=== PATIENT | female | born 1985 | race Caucasian/White ===

== ENCOUNTER 2023-06-11 13:47 | Emergency (ER) | payer OTHER, SELFPAY ==
[2023-06-11 14:12] LABS: % Eosinophils 1.3 % (0-6); % Immature Granulocytes 0.4 % (0-0.5); % Monocytes 5.7 % (1.7-9.3); % Neutrophils 59.6 % (42.2-75.2); Absolute Basophils 0.1 10^3/uL (0-0.2); Absolute Eosinophils 0.1 10^3/uL (0-0.7); Absolute Lymphocytes 2.2 10^3/uL (1.2-3.4); Absolute Monocytes 0.4 10^3/uL (0.1-0.6); Absolute Neutrophils 4.1 10^3/uL (1.4-6.5); Hematocrit 37.5 % (37.0-47.0); Hemoglobin 12.5 g/dL (12.0-16.0); Mean Corp Hgb Conc. 33.3 g/dL (33.0-37.0); Mean Corpuscular Hgb 29.1 pg (27.0-31.0); Mean Corpuscular Volume 87.4 fL (81.0-99.0); Mean Platelet Volume 9.8 fL (7.4-10.4); Nucleated Red Blood Cells % 0 %; Platelet Count 353 10^3/uL (130-400); Red Blood Cell Count 4.29 10^6/uL (4.20-5.40); Red Cell Dist. Width 11.9 % (11.5-14.5); White Blood Cell Count 6.8 10^3/uL (4.8-10.8)
[2023-06-11 14:28] LABS: ALT (SGPT) 20 U/L (0-35); AST (SGOT) 19 U/L (14-36); Albumin 4.9 g/dl (3.5-5.0); Alkaline Phosphatase 49 U/L (38-126); Blood Urea Nitrogen 16 mg/dl (7-17); Calcium 9.9 mg/dl (8.4-10.2); Carbon Dioxide 28 mmol/L (22-30); Chloride 101 mmol/L (98-107); Glucose 100 mg/dl (70-99); Potassium 3.9 mmol/L (3.5-5.1); Sodium 138 mmol/L (135-145); Total Bilirubin 1.5 mg/dl (0.2-1.3); Total Protein 7.3 g/dl (6.3-8.2); eGFR > 60.00
[2023-06-11 14:38] LABS: Troponin I < 0.012 ng/ml
[2023-06-11 16:38] VITALS: BP 128/86
--- NOTE | 2023-06-11 17:13 | ED.GENMED ---
History of Present Illness
General
Chief Complaint: Chest Pain
Source: patient and significant other
Exam Limitations: none
Time Seen by Provider: 06/11/23 16:07
Nursing documentation reviewed up to this point in time: agreed with
Travel History
Have you had any contact with someone who has COVID-19?: No
Do you have any symptoms of coronavirus? Fever > 100 degrees, chills, cough, shortness of breath, sore throat, loss of taste or smell, muscle aches, or headache?: No
History of Present Illness
History of Present Illness:
Patient is a 37-year-old female who denies significant past medical history who presents emergency department accompanied by her wendy� for evaluation of chest pain. Patient reports that she developed the pain 3 days ago. She reports that it
started while she was at rest over her left chest. Patient reports the pain then started to radiate into her left shoulder and down her left arm. Patient also has noticed some pain in her left upper back. Patient reports that the pain in all
these locations occurs intermittently. She reports that sometimes it is associated with some numbness and tingling in her left hand. She also reports intermittent nausea. Patient denies any shortness of breath. Patient denies any exacerbating
factors, she denies that the pain is worse when she takes a deep breath. Patient reports that when she is distracted such as when her filourdes� is making her laugh, she seems to not feel the pain. Patient reports taking a holistic medication without
improvement of her pain. Patient denies taking any other medications for her pain. Patient reports that she would to see her primary care provider today and was referred to the emergency department for further evaluation. Patient reports CAD does
run in her family but not at young ages. Patient denies any personal or family history of VTE. Patient denies any recent lower extremity edema or prolonged periods of immobility. Patient reports she does have a Mirena IUD in place. Patient notes
she did have strep throat last week and did complete a course of antibiotics. Patient denies that she was coughing or had hemoptysis. Patient denies the pain is better or worse with laying flat or sitting forward. Patient admits that she is
undergoing an extremely stressful legal situation with her ex- in regards to custody of their children. She reports that she has court tomorrow.
Review of Systems
Review of Systems
Allergies reviewed?: Yes
All Other Systems: ROS reviewed and negative except as documented in HPI and ROS
Constitutional: Reports no symptoms
EENT: Reports no symptoms
Respiratory: Reports no symptoms
Cardiac: Reports chest pain ('sometimes' denies any currently)
ABD/GI: Reports abdominal pain ('sometimes', none currently)
: Reports no symptoms
Musculoskeletal: Reports back pain
Skin: Reports no symptoms
Neurological: Reports no symptoms
Endocrine: Reports no symptoms
Hematologic/Lymphatic: Reports no symptoms
Psychiatric: Reports no symptoms
Phy Exam
General Physical Exam
General Presentation: well appearing
General Skin: warm and dry
General Habitus: normal
General Mental: alert
General Hydration: appears well hydrated
ENT Exam
ENT Exam: EOMI, neck supple and normocephalic
Eye Exam
Eye Exam: PERRL, cornea clear and conjunctiva normal
Cardiovascular Exam
Cardiovascular Exam: regular rate/rhythm, no edema, no murmur and normal peripheral pulses
Pulmonary Exam
Pulmonary Exam: lungs clear, no respiratory distress, no rales, no crackles, no rhonchi, no stridor, no wheezing and no cough
Gastrointestinal Exam
Gastrointestinal Exam: normal bowel sounds, non tender, soft, no organomegaly, no pulsatile mass and non distended
Neurological Exam
Neurological Exam: alert, oriented x3, no motor deficits, speech normal and other (normal and equal strength of the bilateral upper extremities, 2+ radial pulses bilaterally, sensation is intact to light touch distally)
Musculoskeletal Exam
Musculoskeletal Exam: full ROM, no edema and other (ttp over the anterior left chest wall which reproduces the patient's pain)
Skin Exam
Skin Exam: normal color, warm/dry, no rash and no petechia
Psychiatric Exam
Psychiatric Exam: normal mood/affect
Scores
Heart Score for Chest Pain Patients
STEMI patient?: No
History: Slightly or Non-Suspicious
ECG: Normal
Age: </= 45 years
Risk Factors: No Risk Factors
Troponin: </= Normal Limit
Heart Score for Chest Pain Patients: 0
Heart Score Risk: 2.5% MACE over next 6 weeks
Course
Orders/Labs/Results
Orders:
Orders
06/11/23 13:55
Electrocardiogram (*1) Urgent
Reason for Study: Chest Pain
EKG- Treatment ONCE
06/11/23 14:03
Complete Blood Count/With Diff Urgent
Comprehensive Metabolic Panel Urgent
Troponin I Urgent
06/11/23 16:41
CR Chest - 2 Views Urgent
Comment:
Reason For Exam: chest pain
Abnormal Lab Results
06/11/23
14:03
Creatinine 0.5 L mg/dL
(0.6-1.0)
Glucose 100 H mg/dl
(70-99)
Total Bilirubin 1.5 H mg/dl
(0.2-1.3)
06/11/23 14:03
06/11/23 14:03
Vital Signs
Initial and Last Documented VS:
Initial Vital Signs
Temp Pulse Resp Pulse Ox
98.5 F 85 18 99
06/11/23 13:53 06/11/23 13:53 06/11/23 13:53 06/11/23 13:53
Last Documented Vital Signs
Temp Pulse Resp BP Pulse Ox
98.5 F 84 11 125/66 98
06/11/23 13:53 06/11/23 16:59 06/11/23 16:59 06/11/23 18:01 06/11/23 18:15
*Critical Care Note
Total Time (30-74mins, 75-104mins- exclusive of procedures): Not Applicable
Update Note
Update Note:
Patient is a 37-year-old female who denies significant past medical history who presents to the emergency department for evaluation of left-sided chest pain which has been intermittent over the past several days. Patient reports intermittent
radiation down the left arm. Patient notes that she has been under significant mental stress lately as she is currently going through a custody xiong with her previous partner. On arrival, patient's vital signs are stable, she is afebrile. On
exam, patient is very well-appearing, she is in no acute distress, she has a normal cardiopulmonary exam, she has chest wall tenderness which reproduces the patient's pain, she is neurologically intact. While the patient was in the waiting room,
she had an EKG which demonstrates an incomplete right bundle branch block but no other dysrhythmia or evidence of acute ischemia. Labs were obtained and are nonactionable, patient has a negative troponin. Chest x-ray demonstrates no acute disease
process. Given the fact the patient's pain has been persistent for the past few days and that I have a low suspicion for cardiac cause of the patient's pain, feel that single troponin is sufficient. Patient is safe for discharge to home, she was
advised to follow-up with her PCP to see if she needs referral to cardiology for further evaluation. Patient and her significant other were educated on return precautions, they expressed understanding of the plan and agreed.
ED Attending Note
-
Portions of this chart may have been created with voice recognition software.� Occasional wrong word or��sound alike� substitutions may have occurred due to the inherent limitations of voice recognition software.
Discharge Plan
Departure
Patient Disposition: Home (Routine Discharge)
Date of Disposition: 06/11/23
Time of Disposition: 18:18
Patient with high blood pressure during this ER visit?: Yes
Condition: Good
Covid-19: Not Applicable
Discharge Problem:
Chest pain
Instructions: Chest Pain PCP Follow Up
Prescriptions:
No Action
[id number] fum-folic 1 EACH tablet
1 ea PO DAILY
acetaminophen 325 MG tablet
650 mg PO Q4HPRN PRN (Reason: mild pain) 0RF
ibuprofen 600 MG tablet
600 mg PO Q4HPRN PRN (Reason: cramps) Qty: 30 0RF
simethicone [Gas Relief 80 (simethicone)] 80 MG tablet,chewable
80 mg PO TIDPRN PRN (Reason: flatulence) 0RF
Referrals:
Adina Whitmore MD [Family Provider] - Follow up in 2-3 days
Activity Restrictions/Additional Instructions:
You were seen in the emergency department for evaluation of chest pain with radiation into your left arm. While you were in the emergency department, you had an EKG, blood work, and chest x-ray. No dangerous abnormalities were found and you are
safe for discharge to home. Your symptoms could be due to stress/anxiety. You may take ibuprofen or Tylenol for pain. Please follow up with your primary care provider to determine if additional evaluation is needed. Please return to the emergency
department for increasing chest pain, shortness of breath, abdominal pain, nausea, vomiting, numbness, weakness, or tingling of your extremities, or for any other worsening or concerning symptoms.
Interventions
Interventions:
*Risk Screen - Suicide Last Done: 06/11/23 17:00
*General Assessment Last Done: 06/11/23 17:00
*Neglect/Abuse Screening Last Done: 06/11/23 17:00
ED- Fall Risk Assessment Last Done: 06/11/23 16:50
*ED COVID-19 Vaccine History Last Done: 06/11/23 17:00
*Nursing Disposition Last Done: 06/11/23 18:38
ED- Cardiac Assessment Last Done: 06/11/23 16:50
Discharge Date and Time
Discharge Date/Time: 06/11/23 18:38
[2023-06-11 17:32] VITALS: BP 128/71
[2023-06-11 18:01] VITALS: BP 125/66
== END 2023-06-11 18:38 | disposition home or self-care (01) ==
LOC: EMR 13:47
PROVIDERS: Emergency Medicine; EMERGENCY PHYSICIAN Emergency Medicine; FAMILY PHYSICIAN Internal Medicine
DX: R07.89 Other chest pain (principal)
CPT/HCPCS: 99283; 71046; 80053; 84484; 85025; 93005